=== PATIENT | male | born 1985 | race Caucasian/White ===

== ENCOUNTER 2023-02-28 21:28 | Emergency (ER) | payer OTHER, SELFPAY ==
[2023-02-28 21:29] VITALS: BP 161/107; PULSE 90; RESP 16; TEMP 36.6; O2SAT 99
--- NOTE | 2023-02-28 21:40 | RAD_ITS ---
EXAM: XR RIGHT KNEE COMPLETE, 4 OR MORE VIEWS CLINICAL INDICATION: Injury/Pain TECHNIQUE: Four or more views of the right knee. COMPARISON: No relevant prior studies available. FINDINGS: BONES/JOINTS: There is mild subchondral sclerosis and medial tibial plateau but no significant medial joint space narrowing. No joint effusion. No acute fracture. No subluxation. Normal alignment. SOFT TISSUES: Unremarkable. No soft tissue swelling or gas. No radiopaque foreign body. RAD/Knee 4 or More Views IMPRESSION: Minimal degenerative changes. No acute abnormality. Electronically Signed: Mily Stinson MD at 22:21 EST ,
--- NOTE | 2023-02-28 21:46 | EDS_ITS ---
HPI History of Present Illness HPI Narrative: Patient presents with right knee pain that began today. Patient states he was kicked by a horse in the active his right knee. Patient describes his pain as sharp. Patient states he took some ibuprofen which seemed to help with the pain. Patient states he did have some numbness and tingling initially. Patient states this has resolved. Patient was able to ambulate. Patient denies any weakness. Patient denies any other injuries. Chief Complaint: Lower Extremity Injury Occured/Mechanism Mechanism/Context: Yes blunt trauma Onset/Context/Timing Onset: Today Context: Sudden Onset Timing: Continuous Quality of Pain: Sharp Location: Lateral aspect of the right knee Worsened by: Nothing Relieved by: Ibuprofen Associated Symptoms Associated Symptoms: Positive for Parasthesia; Negative for Weakness or Loss of Funtion PFSH [facility] Medical History (Updated 02/28/23 @ 22:[address] Camilo Meyer DO) Hypertension Medical History no medical history Allergy/AdvReac Type Severity Reaction Status Date / Time No Known Allergies Allergy Verified 02/28/23 21:29 Family History no significant family his Surgical History no surgical history no surgical history Social History Smoking Status: Never smoker ROS ROS ED Constitutional Constitutional ED: Denies chills or fever(s) Eyes Eyes: Denies blurry vision or change in vision ENT ENT ED: Denies rhinorrhea or sore throat Cardiovascular Cardiovascular: Denies chest pain or palpitations Respiratory/Chest Respiratory/Chest: Denies cough or dyspnea Gastrointestinal Gastrointestinal: Denies nausea or vomiting Genitourinary Genitourinary ED: Denies dysuria or hematuria Musculoskeletal Musculoskeletal: Denies back pain or neck pain Integumentary Denies abscess or rash Neurologic Neurologic: Denies headache(s) or weakness Allergic/Immunologic Allergic/Immunologic ED: Denies mouth swelling or urticaria EXAM Physical Exam Const Vital Signs: 02/28/23 21:29 Temperature 97.8 F Temperature Source Temporal Pulse Rate 90 Respiratory Rate 16 Blood Pressure 161/107 H Blood Pressure Mean 125 Pulse Ox 99 Positive well nourished and well developed General Appearance ED: well developed and NAD HEENT Reports moist mucous membranes Neck full ROM and supple Extremity Extremity Narrative: There is tenderness over the lateral aspect of the right knee. There is a superficial abrasion over this area. There is no active bleeding noted. There is no bony crepitance or step-off noted. There is no joint effusion. Range of motion of the right knee was limited in flexion secondary to pain. Strength is 5/5 bilaterally in the lower extremities. There are no sensory deficits noted. Pedal pulses are equal bilaterally. Neuro oriented x3, CN's II-XII intact bilaterally, moves all extremities and no sensory deficits noted Sensorium / Orientation: alert Motor Exam: strength 5/5 throughout Psych mental status grossly normal MDM MDM MDM Narrative Medical decision making narrative: Differential diagnosis includes fracture and contusion. X-rays of the right knee will be obtained to assess for fracture. Radiography Diagnostic Testing: Clinical Impression(s) from Imaging Studies Knee X-Ray 02/28/23 21:40 IMPRESSION: Minimal degenerative changes. No acute abnormality. Electronically Signed: Mily Stinson MD at 22:21 EST Reading Location ID and State: [address] [place] [address] Tel , Service support , X-rays of the right knee were obtained. There are 4 views. On my independent interpretation, there is no acute fracture or dislocation noted. There is no joint effusion noted. Radiologist also interpreted the x-rays and agrees. Treatment and Re-Evaluation Narrative: Patient was given an ice pack. Patient was advised of his findings. Patient was instructed to ice and elevate the right knee. Patient was instructed to take Tylenol or ibuprofen as needed for pain. Patient was instructed to follow- up with his primary care physician in 5 to 7 days. Patient understood and was agreeable with the plan. All questions were answered. Discharge Plan Triage Chief Complaint: Lower Extremity Injury ED Provider: Camilo Meyer Dx/Rx/DC Orders Clinical Impression: Contusion of right knee, initial encounter Instructions: ED Contusion, Lower Extremity Primary Care Provider: Kenrick Vaz Referrals: Kenrick aVz, [Primary Care Provider] - 5-7 Days NOT,DEFINED [Non-Staff] - Disposition Disposition: Home, Self Care
[2023-02-28 21:56] VITALS: BMI 32.8
== END 2023-02-28 23:15 | disposition home or self-care (01) ==
PROVIDERS: Emergency Provider Emergency Medicine; PCP Family Medicine; Visit Provider Emergency Medicine
DX: S80.01XA Contusion of right knee, initial encounter (principal); I10 Essential (primary) hypertension; W55.12XA Struck by horse, initial encounter
CPT/HCPCS: 73564; 99282